=== PATIENT | male | born 2005 | race Caucasian/White ===

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

== ENCOUNTER 2025-04-25 13:00 | Emergency (ER) | payer BC, MEDICAID ==
[~2025-04-25] VITALS: Ht 175.3 cm; Wt 90.2 kg
[2025-04-25] MEDS: SODIUM CHLORIDE 0.9% 1,000 ML IVB ONE (13:45)
--- NOTE | 2025-04-25 13:54 | ED.PDOC ---
GI ASSESSMENT HPI Comments 19y M who presents to the ED for chief complaint of abdominal pain. Pt states he has been having RUQ and LUQ abdominal pain since earlier this AM after waking up this morning. Pt states his pain is 10/10, constant, non-radiating, with no associated exacerbating or relieving factors. Pt has assocaited nasuea and vomiting but denies any other symptoms. Pt mom states he had appt with GI specialist in August 2025. Pt denies any other symptoms. Pt denies sick contacts or changes to diet. Chief Complaint: Abdominal Pain Time Seen by MD: 13:52 Primary Care Provider: CAROL Reviewed Notes: Nurses Notes, Medications, Allergies Allergies: Coded Allergies: Lactose (Verified Allergy, Severe, 03/09/18) Home Meds Active Scripts Pantoprazole Sodium Sesquihydr (Protonix) 40 Mg Tab, 40 MG PO DAILY, #30 TAB Prov:YUDITH MAY MD 04/25/25 Ondansetron Odt 4MG Tab (ZOFRAN PO) 4 Mg Tb, 4 MG PO Q12HP PRN for 7 Days, #14 TAB ODT TAB-DISSOLVE IN MOUTH, THEN SWALLOW Prov:YUDITH MAY MD 04/25/25 Information Source: Patient Mode of Arrival: Ambulatory Brought in by: self Timing: Hours Duration: Since onset Prehospital treatment: None Quality: Aching Vomitus: Food Particles, Soft Stool: Normal Severity: Moderate Recent: None Recent Hx of: None Pain Location: RUQ, LUQ Modifying Factors: Nothing Associated sign and symptoms: Nausea, Vomiting, Abdominal Pain Past Medical History PAST MEDICAL HISTORY: Asthma Surgical History: Denies all surgeries Family History Family History: Family hx of DM Social History Smoker: Non-Smoker Alcohol: Denies ETOH Use Drugs: Denies Drug Use Lives In: Home Constitutional: denies: chills, diaphoresis, fatigue, fever, malaise, sweats, weakness, others EENTM: denies: blurred vision, double vision, ear bleeding, ear discharge, ear drainage, ear pain, ear ringing, eye pain, eye redness, hearing loss, mouth pain, mouth swelling, nasal discharge, nose bleeding, nose congestion, nose pa in, photophobia, tearing, throat pain, throat swelling, voice changes, others Respiratory: denies: cough, hemoptysis, orthopnea, SOB at rest, shortness of breath, SOB with excertion, stridor, wheezing, others Cardiovascular: denies: chest pain, dizzy spells, diaphoresis, Dyspnea on exertion, edema, irregular heart beat, left arm pain, lightheadedness, palpitations, PND, syncope, others Gastrointestinal: reports: abdominal pain, nausea, vomiting; denies: abdomen distended, blood streaked bowels, constipated, diarrhea, dysphagia, difficulty swallowing, hematemesis, melena, poor appetite, poor fluid intake, rectal bleeding, rectal pain, others Genitourinary: denies: burning, dysuria, flank pain, frequency, hematuria, incontinence, penile discharge, penile sore, pain, testicle pain, testicle swelling, urgency, others Neurological: denies: dizziness, fainting, headache, left sided numbness, left sided weakness, numbness, paresthesia, pre-existing deficit, right sided nu mbness, right sided weakness, seizure, speech problems, tingling, tremors, weakness, others Musculoskeletal: denies: back pain, gout, joint pain, joint swelling, muscle pain, muscle stiffness, neck pain, others Integumetry: denies: bruises, change in color, change in hair/nails, dryness, laceration, lesions, lumps, rash, wounds, others Allergic/Immunocompromised: denies: Difficulty Healing, Frequent Infections, Hives, Itching, others Hematologic/Lymphatic: denies: anemia, blood clots, easy bleeding, easy bruising, swollen glands, others Endocrine: denies: excessive hunger, excessive sweating, excessive thirst, excessive urination, flushing, intolerance to cold, intolerance to heat, unexplained weight gain, unexplained weight loss, others Psychiatric: denies: anxiety, bipolar disorder, depression, hopeless, panic disorder, schizophrenia, sleepless, suicidal, others All Other Systems: Reviewed and Negative Physical Exam General Appearance: Mild Distress HEENT: Normal ENT Inspection, Pharynx Normal, TMs Normal Neck: Full Range of Motion, Non-Tender, Normal, Normal Inspection Respiratory: Chest Non-Tender, Lungs Clear, No Accessory Muscle Use, No Respiratory Distress, Normal Breath Sounds Cardiovascular: No Edema, No JVD, No Murmur, No Gallop, Normal Peripheral Pulses, Regular Rate/Rhythm Breast Exam: Deferred Gastrointestinal: Epigastric, No Organomegaly, No Pulsatile Mass, Normal Bowel Sounds, Soft, Tenderness Genitalia: Deferred Pelvic: Deferred Rectal: Deferred Extremities: No calf tenderness, Normal capillary refill, Normal inspection, Normal range of motion, Non-tender, No pedal edema Musculoskeletal : Apperance: Normal Neurologic: Alert, mine development engineer II-XII nml as Tested, No Motor Deficits, Normal Affect, Normal Mood, No Sensory Deficits Cerebellar Function: Normal Reflexes: Normal Skin: Dry, Normal Color, Warm Lymphatic: No Adenopathy Was a procedure done? Was a procedure done?: No GI differential Dx Differential Diagnosis: Appendicitis, Cholecystitis, Constipation, Esophagitis, Gastritis/PUD, Gastroenteritis, Pancreatitis, Dehydration, Electrolyte Imbalance, Food Poisoning, Bacterial, Viral, Stress Ulcer, Kidney Stone X-Ray, Labs, Meds, VS Vital Signs Date Time Temp Pulse Resp B/P (MAP) Pulse Ox O2 Delivery O2 Flow Rate FiO2 04/25/25 16:07 77 17 132/77 04/25/25 15:37 66 17 118/86 04/25/25 15:27 97.8 66 17 118/86 (97) 100 97.8 04/25/25 15:27 66 17 100 Room Air 04/25/25 13:02 98.0 64 18 129/96 99 98.0 Lab Test 04/25/25 16:58 04/25/25 13:51 Range/Units Urine Color Yellow Yellow Urine Clarity Clear Clear Urine pH 6.0 5.0-9.0 Urine Specific [place] 1.027 1.001-1.035 Urine Protein Negative Negative Urine Ketones Negative Negative Urine Blood Negative Negative /uL Urine Nitrite Negative Negative Urine Bilirubin Negative Negative Urine Urobilinogen Normal Negative mg/dL Urine Leukocyte Esterase Negative Negative /uL Urine RBC 1 0 - 3 /hpf Urine Microscopic WBC < 1 0-3 /HPF Urine Squamous Epithelial Cells None seen <5 /hpf Urine Bacteria None seen None Seen /hpf Urine Mucus Few None Seen Urine Glucose Normal Normal mg/dL Urine Opiates Screen Pos NEGATIVE Urine Fentanyl Screen Neg NEGATIVE Urine Barbiturates Screen Neg NEGATIVE Urine Phencyclidine Screen Neg NEGATIVE Urine Amphetamines Screen Neg NEGATIVE Urine Benzodiazepines Screen Neg NEGATIVE Urine Cocaine Screen Neg NEGATIVE Urine Cannabinoids Screen Neg NEGATIVE White Blood Count 5.7 4.4-10.8 10^3/uL Red Blood Count 5.44 4.5-5.90 10^6/uL Hemoglobin 16.2 13.5-17.5 g/dL Hematocrit 46.9 41.0-53.0 % Mean Corpuscular Volume 86.2 80.0-100.0 fL Mean Corpuscular Hemoglobin 29.8 28.0-32.0 pg Mean Corpuscular Hemoglobin Concent 34.6 32.0-36.0 g/dL Red Cell Distribution Width 12.3 11.8-14.3 % Platelet Count 169 140-450 10^3/uL Mean Platelet Volume 10.8 6.9-10.8 fL Neutrophils (%) (Auto) 45.8 37.0-80.0 % Lymphocytes (%) (Auto) 41.9 10.0-50.0 % Monocytes (%) (Auto) 7.8 0.0-12.0 % Eosinophils (%) (Auto) 4.0 0.0-7.0 % Basophils (%) (Auto) 0.5 0.0-2.0 % Neutrophils # (Auto) 2.6 1.6-8.6 10 ^3/uL Lymphocytes # (Auto) 2.4 0.4-5.4 10 ^3/uL Monocytes # (Auto) 0.4 0-1.3 10 ^3/uL Eosinophils # (Auto) 0.2 0-0.8 10 ^3/uL Basophils # (Auto) 0 0-0.2 10 ^3/uL Nucleated Red Blood Cells 0.1 % Sodium Level 141 136-145 mmol/L Potassium Level 4.3 3.5-5.1 mmol/L Chloride Level 105 98-107 mmol/L Carbon Dioxide Level 27 20-31 mmol/L Anion Gap 9 5-15 Blood Urea Nitrogen 12 9-23 mg/dL Creatinine 0.96 0.700-1.30 mg/dL Glomerular Filtration Rate Calc 117 >90 mL/min BUN/Creatinine Ratio 12.5 10.0-20.0 Serum Glucose 92 74-106 mg/dL Calcium Level 9.5 8.7-10.4 mg/dL Lipase 65 H 12-53 U/L Current Medications Medications (Trade) Dose Ordered Sig/Power Route Start Time Stop Time Status Last Admin Ondansetron HCl (Zofran) 4 mg ONCE ONCE IV 04/25/25 13:45 04/25/25 13:46 DC 04/25/25 15:37 Sodium Chloride 1,000 ml @ 1,000 mls/hr Q1H ONCE IVB 04/25/25 13:45 04/25/25 14:44 DC 04/25/25 13:45 Morphine Sulfate 4 mg ONCE ONCE IV 04/25/25 13:45 04/25/25 13:47 DC 04/25/25 15:37 Pantoprazole Sodium (Protonix) 40 mg ONCE ONCE IV 04/25/25 13:45 04/25/25 13:46 DC 04/25/25 15:37 EXAM: CT CT AB PEL WO CON-NO ORAL OR IV IMPRESSION: No acute CT findings in the abdomen and pelvis. The patient had an IV Hep-Lock established The patient was given a 1 L bolus of normal saline The patient was given Zofran 4 mg IV push for nausea The patient was given Protonix 40 mg IV push The patient was given morphine 4 mg IV push for the pain The lipase is elevated at 65 The patient's CBC otherwise is within normal limits The chemistry panel is within normal limits The urine test is negative for infection The patient can be safely discharged The patient was given a prescription of Protonix and Zofran Images Reviewed?: Images reviewed and evaluated by me Time of 1ST Reevaluation: 14:30 Reevaluation 1ST: Unchanged Time of 2ND Reevaluation: 18:31 Reevaluation 2ND: Improved Patient Education/Counseling: Diagnosis, Treatment, Prognosis, Need For Follow Up Family Education/Counseling: No Family Present SEPSIS Sepsis Screen Date sepsis recognized/suspect: Apr 25, 2025 Time Sepsis recognized/suspect: 1305 Recent Procedure: No On Antibiotic Therapy: No Respiratory Rate >20: No Heart Rate >90: No Temp<36 C (96.8 F) or >38.3 C: No SBP <90 or MAP <65 mmHG: No New Acute Mental Status Change: No Is the patient on CPAP, BIPAP,: No Physician Orders Ct Ab Pel Wo Con-No Oral Or Iv (04/25/25 13:45) Heplock Iv (04/25/25 13:45) Vital Signs Date Time Temp Pulse Resp B/P (MAP) Pulse Ox O2 Delivery O2 Flow Rate FiO2 04/25/25 16:07 77 17 132/77 04/25/25 15:37 66 17 118/86 04/25/25 15:27 97.8 66 17 118/86 (97) 100 97.8 04/25/25 15:27 66 17 100 Room Air 04/25/25 13:02 98.0 64 18 129/96 99 98.0 Laboratory Tests Test 04/25/25 13:51 White Blood Count 5.7 10^3/uL (4.4-10.8) Medications Medications Dose Ordered Sig/Power Route Start Time Stop Time Status Last Admin Dose Admin Morphine Sulfate 4 mg ONCE ONCE IV 04/25/25 13:45 04/25/25 13:47 DC 04/25/25 15:37 Ondansetron HCl 4 mg ONCE ONCE IV 04/25/25 13:45 04/25/25 13:46 DC 04/25/25 15:37 Pantoprazole Sodium 40 mg ONCE ONCE IV 04/25/25 13:45 04/25/25 13:46 DC 04/25/25 15:37 Sodium Chloride 1,000 ml @ 1,000 mls/hr Q1H ONCE IVB 04/25/25 13:45 04/25/25 14:44 DC 04/25/25 13:45 Departure 1 Departure Time of Disposition: 18:31 Impression: Primary Impression: Abdominal pain of unknown etiology Additional Impression: Gastritis Qualified Codes: K29.00 - Acute gastritis without bleeding Disposition: HOME / SELF CARE / HOMELESS Condition: Fair e-Prescriptions Pantoprazole Sodium Sesquihydr (Protonix) 40 Mg Tab 40 MG PO DAILY, #30 TAB Prov: YUDITH MAY MD 04/25/25 Ondansetron Odt 4MG Tab (ZOFRAN PO) 4 Mg Tb 4 MG PO Q12HP PRN for 7 Days, #14 TAB ODT TAB-DISSOLVE IN MOUTH, THEN SWALLOW Prov: YUDITH MAY MD 04/25/25 Discharged With: Self Critical Care Note Critical Care Time?: No Stability Stability form required: No Heart Score Heart Score: Heart Score Response (Comments) Value History N/A 0 EKG N/A 0 Age N/A 0 Risk Factors N/A 0 Troponin N/A 0 Total 0 I personally scribed for YUDITH MAY MD ([email or web address]) on 04/25/25 at 13:54. Electronically submitted by Corona Rubio ([facility] I personally scribed for YUDITH MAY MD ([email or web address]) on 04/25/25 at 14:34. Electronically submitted by Corona Rubio ([email or web address]). YUDITH MAY MD Apr 25, 2025 13:54
[2025-04-25 14:05] LABS: Hematocrit 46.9 % (41.0-53.0); Hemoglobin 16.2 g/dL (13.5-17.5); Mean Corpuscular Hemoglobin 29.8 pg (28.0-32.0); Mean Corpuscular Volume 86.2 fL (80.0-100.0); Nucleated Red Blood Cells % 0.1 %
[2025-04-25 14:12] LABS: Chloride 105 mmol/L (98-107); Potassium 4.3 mmol/L (3.5-5.1); Sodium 141 mmol/L (136-145)
[2025-04-25 14:13] LABS: Anion Gap 9 (5-15); Carbon Dioxide 27 mmol/L (20-31)
[2025-04-25 14:14] LABS: Calcium 9.5 mg/dL (8.7-10.4)
[2025-04-25 14:18] LABS: Glucose 92 mg/dL (74-106)
[2025-04-25 14:19] LABS: BUN/Creatinine Ratio 12.5 (10.0-20.0); Blood Urea Nitrogen 12 mg/dL (9-23); Lipase 65 U/L (12-53)
--- NOTE | 2025-04-25 14:25 | DVH ---
EXAM: CT CT AB PEL WO CON-NO ORAL OR IV HISTORY: pain Comparison Study: CT ABDOMEN PELVIS WITHOUT on DOS: 12/16/24 Exam Date: 04/25/2025 01:55 PM Radiation Dose Information: CT Dose: CTDI volume is 10.82 mGy. Dose-length product is 675.43 mGy*cm TECHNIQUE: Multidetector CT of the abdomen and pelvis was performed. Imaging was performed without IV contrast. Axial, coronal and sagittal multiplanar reformats were obtained from the axial data set by the technologist. FINDINGS: Lack of intravenous contrast compromises evaluation of perfusion and for isodense lesions. Lower chest: Clear. Liver: Unremarkable Biliary system: Unremarkable Spleen: Unremarkable Pancreas: Unremarkable. Adrenals: Unremarkable. Kidneys and ureters: No hydronephrosis. No renal or ureteral calculi. Bowel: No obstruction. Normal appendix. Bladder: Unremarkable Reproductive organs: No abnormal mass. Lymph nodes: Unremarkable. Peritoneum: Unremarkable Vessels: Patency not evaluated on this noncontrast study. Bones and soft tissue: No aggressive osseous lesion. Transitional lumbosacral anatomy. IMPRESSION: No acute CT findings in the abdomen and pelvis.
[2025-04-25] MEDS: MORPHINE SULFATE 4 MG/ML SYR/VIAL IV ONE (15:37)
[2025-04-25] MEDS: PANTOPRAZOLE 40 MG/10 ML VIAL INJ IV ONE (15:37)
[2025-04-25] MEDS: ONDANSETRON HCL 4 MG/2 ML VIAL IV ONE (15:37)
[2025-04-25 17:55] LABS: Opiate Scree,Urine Pos (NEGATIVE)
[2025-04-25 18:22] LABS: Amphetamine Screen, Urine Neg (NEGATIVE); Barbiturate Scree,Urine Neg (NEGATIVE); Benzodiazephine Screen, Urine Neg (NEGATIVE); Cannabinoid Screen, Urine Neg (NEGATIVE); Cocaine Screen, Urine Neg (NEGATIVE); Phencyclidine Screen, Urine Neg (NEGATIVE)
[2025-04-25 18:23] LABS: Urine Protein, UAD Negative (Negative)
[2025-04-25] MEDS ORDERED: PANT40TA2 PO (18:34)
[2025-04-25] MEDS ORDERED: ZOFR4T PO (18:34)
[2025-04-25 18:48] VITALS: BP 120/86; PULSE 63; RESP 17; TEMP 97.8; O2SAT 99
== END 2025-04-25 19:00 | disposition home or self-care (01) ==
LOC: ER 13:00
DX: K29.00 Acute gastritis without bleeding (principal); J45.909 Unspecified asthma, uncomplicated; Z79.899 Other long term (current) drug therapy
CPT/HCPCS: 36415; 74176; 80048; 80307; 81001; 83690; 85025; 96361; 96374; 96375; 99285; J2270; J2405; J2470; J7030